=== PATIENT | male | born 1950 | race Caucasian/White ===

== ENCOUNTER 2018-08-14 12:24 | Outpatient (CLI) | payer MEDICARE, BC, SELFPAY ==
--- NOTE | 2018-08-14 12:26 | DI.RAD.S_ITS ---
PROCEDURE: PAIN L/S TRANSFORAMINAL INJECT INDICATIONS: Foraminal stenosis with right lower extremity radicular FINDINGS: Fluoroscopic spot filming was performed to verify placement of spinal needles at the L3-4 right-sided transforaminal border level(s), as labeled on the films. Appropriate location(s) of the needle tip(s) was confirmed by injection of iodinated contrast. IMPRESSION: Successful right right-sided L3-4 needle tip localization for transforaminal epidural steroid injection. Dictated by: Jaya Erickson M.D. on 08/14/2018 at 16:24 Approved by: Jaya Erickson M.D. on 08/14/2018 at 16:25
[2018-08-14 12:43] VITALS: BP 113/74; PULSE 82; RESP 18; TEMP 36.2; O2SAT 98
[2018-08-14 13:15] VITALS: BP 115/67; PULSE 80; RESP 16; O2SAT 98
[2018-08-14 13:19] VITALS: BP 111/74; PULSE 76; RESP 16; O2SAT 97
[2018-08-14 13:24] VITALS: BP 111/55; PULSE 77; RESP 18; O2SAT 97
[2018-08-14] MEDS: BUPIVACAINE 0.25% (PF) VIAL 2 ML INJ (13:25)
[2018-08-14] MEDS: DEXAMETHASONE 10 MG/ML VIAL 20 MG INJ (13:26)
[2018-08-14] MEDS: methylPREDNISolone acetate 80 MG/ML VIAL INJ (13:26)
[2018-08-14] MEDS: IOPAMIDOL 15 ML VIAL 3 ML INJ (13:26)
--- NOTE | 2018-08-14 13:29 | PC.NURSE ---
pt stable and did not receive sedation. Tolerated procedure and was able to get off table with minimal assistance. Transferred to pre procedure room in W/C and handed off to Darlene RIVAS.
[2018-08-14 13:33] VITALS: BP 138/73; PULSE 82; RESP 16; O2SAT 100
--- NOTE | 2018-08-14 13:35 | P.PCN_ITS ---
Procedures Date/Time Date of procedure: 08/14/18 Time of procedure: 13:34 General Procedure description: PROVIDER: Ayan Mtz DO Operative Note PREOP DIAGNOSIS 1. FORAMINAL STENOSIS WITH LE SYMPTOMS, POST OP DIAGNOSIS 1. FORAMINAL STENOSIS WITH LE SYMPTOMS, PROCEDURES 1. FLUOROSCOPICALLY GUIDED CONTRAST CONTROLLED TRANSFORAMINAL EPIDURAL STEROID INJECTION - RIGHT L3/4 TFESI SURGEON: Ayan Mtz DO INDICATION: Po is referred for treatment of Foraminal Stenosis with right LE Symptoms FINDINGS Foraminal Nerve Root Compression secondary to disc disease and facet hypertrophy DESCRIPTION OF PROCEDURE Following denial of allergy and review of potential side effects and complications, including, but not necessarily limited to, infection, allergic reaction, local tissue breakdown, stroke, temporary or permanent nerve injury, paralysis, and possible , the patient indicated that the patient understood and agreed to proceed. An informed consent document was signed by the patient, witnessed by a nurse, and placed in the patient's chart. Additionally, other treatment options including medications, modalities, and physical therapy were reviewed with the patient. After review of previous anaesthesic history and IV conscious sedation the patient was deemed safe to proceed with todays procedure with IV conscious sedation as ASA class II designation. Safety time-out was performed to confirm patient ID, procedure to be performed and site of procedure. IV sedation was deemed unnecessary and thus not administered by the RN after DO order, during the course of the procedure while the patient remained responsive to all verbal commands In the prone position following sterile prep and drape of the lumbar region, the right L3/4 posterior neuroforamen was identified fluoroscopically. The skin was anesthetized via a 25-gauge 1.5-inch needle with 1% lidocaine solution. At this point, a 25-gauge 3.5-inch spinal needle was atraumatically introduced and advanced under fluoroscopic guidance through the posterior right L3/4 neuroforamen to approximately the anterior aspect of the canal. Depth was confirmed on lateral view. Following negative aspiration, injection of approximately 1.5 cc of Isovue 200 under live fluoroscopy in the AP view confirmed excellent flow along the nerve root, into the epidural space without vascular or intrathecal uptake observed Radiological data, including multiple fluoroscopic views of the lumbosacral spine, reveal a spinal needle at the right L3/4 posterior neuroforamen. Subsequent views show flow of contrast material flowing superiorly and inferiorly along the nerve root confirming epidural flow. Subsequently, a test dose of 1.5 cc of 1% lidocaine solution was administered and patient was observed for two minutes for signs or symptoms of complications , including abdominal pain, shortness of breath, bilateral upper or lower extremity weakness, nausea and vomiting, prior to steroid injection. At this point, a total of 3 cc or 20 mg of dexamethasone and 80mg Depo medrol was injected without incident. The patient tolerated the procedure well without signs or symptoms of complications prior to transfer to the recovery area continued monitoring without incident. The patient was then transferred to the recovery area where they were observed for an appropriate time after the injection. The patient reported a VAS score of 7 prior to the procedure and a post-procedure VAS of 0. Total Fluoroscopy Time: 24.2 seconds Total Conscious Sedation Time: 24min POST OP INSTRUCTIONS The patient was provided a Pain Log to continue to record their response to the target-specific procedure prior to follow-up visit with their referring physician. Additionally, specific post-injection care instructions and a contact number to our office were provided if concerns arise regarding possible complications associated with the procedure are suspected. Ayan Mtz DO Complications: none
== END 2018-08-14 13:44 | disposition home or self-care (01) ==
LOC: RAD 12:26
PROVIDERS: Visit Provider Physical Medicine & Rehabilitation
DX: M48.061 Spinal stenosis, lumbar region without neurogenic claudication (principal); M51.16 Intervertebral disc disorders with radiculopathy, lumbar region; M96.1 Postlaminectomy syndrome, not elsewhere classified
CPT/HCPCS: 64483; J1040; J1100; J2250

== ENCOUNTER 2018-11-06 07:54 | Outpatient (CLI) | payer MEDICARE, BC, SELFPAY ==
[2018-11-06] VITALS (7 sets, daily range): BP systolic 106–126; BP diastolic 73–85; PULSE 71–76; RESP 16–21; TEMP 36.1; O2SAT 94–97
--- NOTE | 2018-11-06 07:58 | DI.RAD.S_ITS ---
PROCEDURE: PAIN L/SI FACET INJ/BLK 1STL INDICATIONS: SPONDYLOSIS FINDINGS: Fluoroscopic spot filming was performed to verify placement of spinal needles at the right L3-4, L4-5, L5-S1 level(s), as labeled on the films. Appropriate location(s) of the needle tip(s) was confirmed by injection of iodinated contrast. IMPRESSION: Successful right L3-4, L4-5, L5-S1 facet joint region localization for perineural epidural steroid injection. Dictated by: Jaya Erickson M.D. on 11/06/2018 at 10:16 Approved by: Jaya Erickson M.D. on 11/06/2018 at 10:17
[2018-11-06] MEDS: MIDAZOLAM 5 MG/5 ML VIAL IV (08:40)
[2018-11-06] MEDS: IOPAMIDOL 15 ML VIAL 3 ML INJ (08:52)
[2018-11-06] MEDS: BUPIVACAINE 0.5% (PF) VIAL 2 ML INJ (08:52)
[2018-11-06] MEDS: BETAMETHASONE 30 MG/5 ML MDV 12 MG INJ (08:53)
[2018-11-06] MEDS: LIDOCAINE 1% 20 ML INJ 10 ML INJ (08:53)
--- NOTE | 2018-11-06 09:02 | P.PCN_ITS ---
Procedures Date/Time Date of procedure: 11/06/18 Time of procedure: 08:59 General Procedure description: PREOP DIAGNOSIS 1. FACET ARTHROPATHY, 2. AXIAL LBP, 3. MULTILEVEL DDD, POST OP DIAGNOSIS 1. FACET ARTHROPATHY, 2. AXIAL LBP, 3. MULTILEVEL DDD, PROCEDURES 1. FLUORSCOPICALLY GUIDED CONTRAST CONTROLLED FACET JOINT INJECTIONS RIGHT L3/4 , L4/5, L5/S1 SURGEON: Ayan Mtz, DO INDICATIONS Po is referred for treatment of Axial LBP FINDINGS Multilevel Facet Arthropathy with Clinically significant axial LBP DESCRIPTION OF PROCEDURE Fluoroscopically guided, contrast-controlled right L3/4, L4/5, L5/S1 facet joint injections. Following denial of allergy and review of potential side effects and complications, including, but not necessarily limited to, infection, allergic reaction, local tissue breakdown, stroke, temporary or permanent nerve injury, paralysis, and possible , the patient indicated that the patient understood and agreed to proceed. An informed consent document was signed by the patient, witnessed by a nurse, and placed in the patient's chart. Additionally, other treatment options including medications, modalities, and physical therapy were reviewed with the patient. After review of previous anaesthesic history and IV conscious sedation the patient was deemed safe to proceed with todays procedure with IV conscious sedation as ASA class II designation. Safety time-out was performed to confirm patient ID, procedure to be performed and site of procedure. IV sedation was accomplished with a combination of 5mg was administered by the RN after DO order , titrated to patient comfort during the course of the procedure while the patient remained responsive to all verbal commands. In the prone position, following sterile prep and drape of the lumbar region, the posterior aspect of the right L3/4, L4/5, L5/S1 facet joints were identified fluoroscopically. The skin was anesthetized via a 25-gauge 1.5-inch needle with 1% lidocaine solution into the corresponding facet joints. At this point, a 22-gauge 3.5-inch spinal needle was atraumatically introduced and advanced under fluoroscopic guidance into the corresponding facet joints. Following negative aspiration, injections of approximately 0.2-cc of Isovue 200 confirmed interarticular placement without vascular uptake. Radiological data, including multiple fluoroscopic views of the lumbosacral spine, reveal a spinal needle at the right L3/4, L4/5, L5/S1 facet joints. Subsequent views show flow of contrast material both superiorly and inferiorly within the joint space without vascular or intrathecal uptake. At this point, a total of 0.5 cc including a mixture of 0.25cc Marcaine and 0.25cc betamethasone was injected without complication into each of the corresponding facet joints. The procedure tolerated the procedure well without signs or symptoms of complications prior to transfer to the recovery area continued monitoring without incident. The patient was then transferred to the recovery area where they were observed for an appropriate period of time after the injection. The patient reported a VAS score of 7 prior to the procedure and a post-procedure VAS of 0. Total Fluoroscopy Time: 12.7 seconds Total Conscious Sedation Time: 24min POST OP INSTRUCTIONS The patient was provided a Pain Log to continue to record their response to the target-specific procedure prior to follow-up visit with their referring physician. Additionally, specific post-injection care instructions and a contact number to our office were provided if concerns arise regarding possible complications associated with the procedure are suspected. Ayan Mtz, Complications: none
--- NOTE | 2018-11-06 09:03 | PC.NURSE ---
pt tolerated procedure, assisted off the table and into a wheelchair. pt drowsy but responsive, Transferred pt to pre procedure room for continued monitoring by Darlene RIVAS
--- NOTE | 2018-11-06 09:04 | PC.NURSE ---
accepted care of pt in post proc area. pt in stable condition
--- NOTE | 2018-11-07 12:49 | PC.NURSE ---
Called for follow up call from yesterdays injection. Pt not accepting phone calls per his message machine.
== END 2018-11-06 09:52 | disposition home or self-care (01) ==
LOC: RAD 07:56
PROVIDERS: Visit Provider Physical Medicine & Rehabilitation
DX: M47.817 Spondylosis without myelopathy or radiculopathy, lumbosacral region (principal); M47.816 Spondylosis without myelopathy or radiculopathy, lumbar region; M54.5 Low back pain; M51.36 Other intervertebral disc degeneration, lumbar region; M51.37 Other intervertebral disc degeneration, lumbosacral region
CPT/HCPCS: 64493; 64494; 64495; 99152; J0702; J2250

== ENCOUNTER → 2020-12-04 13:49 | Outpatient (CLI) | payer MEDICARE, BC, SELFPAY ==
--- NOTE | 2020-12-04 13:50 | DI.RAD.S_ITS ---
PROCEDURE: XR LUMBAR SPINE MIN 4V INDICATIONS: BACK PAIN TECHNIQUE: 5 views of the lumbar spine were acquired, including bilateral oblique views. COMPARISON: [facility], MR, L-SPINE WITHOUT CONTRAST, 08/17/2017, 15:09. [facility], CR, XR LUMBAR SPINE WITH OBLIQUES, 08/09/2017, 8:38. FINDINGS: Bones: 5 nonrib-bearing vertebrae are present. There is grade 1 retrolisthesis of L2 on L3, L3 on L4, L4 on L5 and L5 on S1. Non bridging anterior osteophytes are present from L2 through L5. Severe foraminal narrowing is noted at L5-S1, moderate to severe L3-4 L4-5 and mild to moderate L1-L2 and L2-3. Overall appearance is minimally progressive compared to 2017. No vertebral body compression fractures. No suspicious bony lesions. Soft tissues: Overlying bowel gas pattern is normal. No suspicious soft tissue calcifications. Oblique images: No pars defects. IMPRESSION: Multilevel degenerative changes most severe at L4-5 and L5-S1, slightly progressive compared to prior exam. Dictated by: Edda Penny M.D. on 12/04/2020 at 16:17 Approved by: Edda Penny M.D. on 12/04/2020 at 16:18
== END ==
PROVIDERS: Referring Provider Physical Medicine & Rehabilitation; Visit Provider Physical Medicine & Rehabilitation
DX: M47.817 Spondylosis without myelopathy or radiculopathy, lumbosacral region (principal); M47.816 Spondylosis without myelopathy or radiculopathy, lumbar region; M96.1 Postlaminectomy syndrome, not elsewhere classified
CPT/HCPCS: 72110

== ENCOUNTER → 2021-01-01 11:03 | Outpatient (CLI) | payer MEDICARE, BC, SELFPAY ==
--- NOTE | 2021-01-01 11:09 | DI.RAD.S_ITS ---
PROCEDURE: XR LUMBAR SPINE MIN 4V INDICATIONS: LBP s/p fall TECHNIQUE: 5 views of the lumbar spine were acquired, including bilateral oblique views. COMPARISON: [facility], CR, XR LUMBAR SPINE MIN 4V, 12/04/2020, 13:53. FINDINGS: Bones: 5 nonrib-bearing vertebrae are present. There is mild rightward scoliosis of lumbar spine centered at L3 level. Degenerative endplate changes and bilateral facet arthrosis throughout lumbar spine is seen more prominent at L3-4 and L4-5 levels.. No vertebral body compression fractures. No suspicious bony lesions. Soft tissues: Overlying bowel gas pattern is normal. No suspicious soft tissue calcifications. Oblique images: No pars defects. There is suggestion of bilateral bony foraminal stenosis at L3-4 and L4-5 levels. IMPRESSION: 1. No acute compression fracture in lumbar spine. Very mild rightward scoliosis. Grade 1 retrolisthesis of L2 on L3. 2. Degenerative disc disease throughout lumbar spine. No gross pars defect. Bilateral bony foraminal stenosis at L3-4 and L4-5 levels. Dictated by: Fabrizio Alvarez M.D. on 01/01/2021 at 12:27 Approved by: Fabrizio Alvarez M.D. on 01/01/2021 at 12:28
== END ==
PROVIDERS: Referring Provider Physical Medicine & Rehabilitation; Visit Provider Physical Medicine & Rehabilitation
DX: M51.16 Intervertebral disc disorders with radiculopathy, lumbar region (principal); M48.061 Spinal stenosis, lumbar region without neurogenic claudication; M43.16 Spondylolisthesis, lumbar region; M96.1 Postlaminectomy syndrome, not elsewhere classified
CPT/HCPCS: 72110

== ENCOUNTER → 2021-01-24 12:26 | Outpatient (CLI) | payer MEDICARE, BC, SELFPAY ==
--- NOTE | 2021-01-24 12:28 | DI.MRI.S_ITS ---
PROCEDURE: MR LUMBAR SPINE WO CON INDICATIONS: Post laminectomy syndrome TECHNIQUE: Noncontrast sagittal T1 spin echo and T2 fast echo, sagittal STIR, axial T1 and T2 fast spin echo through the lumbar spine. In cases with scoliosis, additional coronal T2 fast spin echo may be performed. COMPARISON: [facility], CR, XR LUMBAR SPINE MIN 4V, 01/01/2021, 11:16. [facility], MR, L-SPINE WITHOUT CONTRAST, 08/17/2017, 15:09. FINDINGS: Image quality: Excellent. Alignment and Curvature: There is normal bony alignment. Remote L3-L4 laminectomy. Bone Marrow: Marrow is of normal overall signal. No acute vertebral body compression fractures. Spinal Cord: Conus medullaris terminates at the L1-L2 level. Visualized cord demonstrates normal signal and size. Paraspinous Soft Tissues: No paravertebral masses. T12-L1: No canal stenosis or foraminal stenosis. L1-L2: No central canal stenosis. Mild bilateral foraminal stenosis. Unchanged. L2-L3: Unchanged. Minimal disc bulge. Facet hypertrophy. No canal stenosis. Mild bilateral foraminal stenosis. L3-L4: Posterior annulus tear plus disc bulge. Posterior laminectomy. No canal stenosis. Moderate bilateral foraminal stenosis, as before, with mild flattening deformity on the exiting L3 nerve roots. L4-L5: Disc bulge. Facet hypertrophy. No central canal stenosis. Moderate to severe right foraminal narrowing with impingement on the exiting right L4 nerve root. Moderate left foraminal narrowing with flattening deformity on the exiting left L4 nerve root. L5-S1: Stable small right paracentral disc protrusion. Prominent bilateral facet and ligament hypertrophy. Mild canal stenosis. Severe right lateral recess stenosis, with impingement on the right S1 nerve root in the right lateral recess. Moderate bilateral foraminal narrowing with flattening deformity on the exiting bilateral L5 nerve roots. IMPRESSION: 1. Remote L3-L4 laminectomy. 2. Multilevel facet arthropathy. 3. Stable findings at L5-S1. There is mild central canal stenosis, severe right lateral recess stenosis, and moderate bilateral foraminal narrowing. 4. Multilevel foraminal narrowing, with at least moderate foraminal narrowing bilaterally at L3-L4 through L5-S1, and moderate to severe right foraminal narrowing at L4-L5. Dictated by: Mo Shelton M.D. on 01/25/2021 at 9:16 Approved by: Mo Shelton M.D. on 01/25/2021 at 9:27
== END ==
PROVIDERS: Referring Provider Physical Medicine & Rehabilitation; Visit Provider Physical Medicine & Rehabilitation
DX: M47.816 Spondylosis without myelopathy or radiculopathy, lumbar region (principal); M96.1 Postlaminectomy syndrome, not elsewhere classified
CPT/HCPCS: 72148

== ENCOUNTER → 2021-02-09 14:38 | Outpatient (CLI) | payer MEDICARE, BC, SELFPAY ==
[2021-02-09 15:34] LABS: COVID19 -Nasal RAPID Negative (Negative)
== END ==
PROVIDERS: Visit Provider Physical Medicine & Rehabilitation
DX: Z20.822 Contact with and (suspected) exposure to COVID-19 (principal)
CPT/HCPCS: 87635; C9803

== ENCOUNTER 2021-02-11 08:16 | Outpatient (CLI) | payer MEDICARE, BC, SELFPAY ==
[2021-02-11] VITALS (9 sets, daily range): BP systolic 89–133; BP diastolic 54–75; PULSE 70–79; RESP 15–23; TEMP 36.1–36.4; O2SAT 97–99
--- NOTE | 2021-02-11 08:17 | DI.RAD.S_ITS ---
PROCEDURE: PAIN L/SI FACET INJ/BLK 1STL INDICATIONS: SPONDYLOSIS COMPARISON: [facility], , PAIN L/SI FACET INJ/BLK 1STL, 11/06/2018, 8:47. FINDINGS: Fluoroscopic spot filming was performed to verify placement of spinal needles at the L3 through S1 levels. Appropriate location(s) of the needle tip(s) was confirmed by injection of iodinated contrast. IMPRESSION: Intraprocedural examination within normal limits. Dictated by: Srinivas Bailey M.D. on 02/11/2021 at 9:25 Approved by: Srinivas Bailey M.D. on 02/11/2021 at 9:26
[2021-02-11] MEDS: fentaNYL 100 MCG/2 ML INJ 50 MCG IV (09:25)
[2021-02-11] MEDS: MIDAZOLAM 5 MG/5 ML VIAL IV (09:29)
[2021-02-11] MEDS: LIDOCAINE 1% 20 ML 10 ML INJ (09:29)
[2021-02-11] MEDS: IOPAMIDOL 15 ML VIAL 3 ML INJ (09:29)
[2021-02-11] MEDS: BUPIVACAINE 0.5% (PF) VIAL 5 ML INJ (09:29)
--- NOTE | 2021-02-11 09:39 | PM.PROC.IR.1 ---
Date/Time/Diagnoses Date of procedure: 02/11/21 Time of procedure: 09:40 Pre-procedure diagnosis: 1. FACET ARTHROPATHY Post-procedure diagnosis: same Procedure Notes Procedure: 1. Left L3, L4, L5 and S1 MB BLOCKS Indications: Po is referred for treatment of Left Axial LBP. Physician: Ayan Mtz Total Fluoroscopy time (seconds): 6 Total sedation minutes: 11 Complications: none Procedure in detail & Post-procedure care: DESCRIPTION OF PROCEDURE Fluoroscopically guided, contrast-controlled left L3, L4, L5 and S1 medial branch blocks with 0.5cc of 0.5% Marcaine. Following review of allergy and review of potential side effects and complications, including, but not necessarily limited to, infection, allergic reaction, local tissue breakdown, nerve injury, paralysis, stroke and possible , the patient indicated that the patient understood and agreed to proceed. An informed consent document was signed by the patient, witnessed by a nurse, and placed in the patient's chart. After review of previous anaesthesic history and IV conscious sedation the patient was deemed safe to proceed with today?s procedure with IV conscious sedation as ASA class II designation. Safety time-out was performed to confirm patient ID, procedure to be performed and site of procedure. IV sedation was accomplished with a combination of 3mg of Versed and 50mcg of Fentanyl was administered by the RN after DO order, titrated to patient comfort during the course of the procedure while the patient remained responsive to all verbal commands. In the prone position, following sterile prep and drape of the lumbar region, the left L3, L4, L5 and S1 anatomical location of the medial branch of the dorsal ramus was identified fluoroscopically. Subsequently an anesthetic skin wheal using 1% lidocaine solution was initiated at each of the anatomical spots. Subsequently then a 22-gauge 3.5-inch spinal needle was atraumatically introduced and advanced under fluoroscopic guidance at each of the corresponding sites at the left L3, L4, L5 and S1 MB. After negative aspiration, 0.2cc of Isovue 200 was injected, confirming placement without vascular or intrathecal uptake. Subsequently then 0.5cc of 0.5% Marcaine solution was injected at each of the corresponding sites at the left L3, L4, L5 and S1 medial branch locations. The patient tolerated the procedure well without signs or symptoms of complications. The patient tolerated the procedure well without signs or symptoms of complications prior to transfer to the recovery area continued monitoring without incident. Post-procedure, the patient was monitored initiating provocative activities to measure the amount of relief from block of the facetogenic pain. The patient reported a VAS of 7 prior to the procedure and a post-procedure VAS of 1. It has been a pleasure to assist in the diagnostic and therapeutic care of your patient. POST OP INSTRUCTIONS The patient was provided with a Pain Log to complete over the next several hours and subsequent days prior to the patient's follow up with the ordering physician. If the patient has research director relief to the solution applied, then they may be a candidate for medial branch rhizotomy. The patient is aware, was provided, once again, with a Pain Log and will follow up with the referring physician for review and clinical correlation.
== END 2021-02-11 10:01 | disposition home or self-care (01) ==
LOC: RAD 08:17
PROVIDERS: Referring Provider Physical Medicine & Rehabilitation; Visit Provider Physical Medicine & Rehabilitation
DX: M47.816 Spondylosis without myelopathy or radiculopathy, lumbar region (principal); M47.817 Spondylosis without myelopathy or radiculopathy, lumbosacral region; M54.5 Low back pain
CPT/HCPCS: 64493; 64494; 64495; 99152; J2250; J3010

== ENCOUNTER → 2021-08-30 11:03 | Outpatient (CLI) | payer MEDICARE, BC, SELFPAY ==
[2021-08-30 13:56] LABS: COVID19 -Nasal RAPID Negative (Negative)
== END ==
PROVIDERS: Visit Provider Physical Medicine & Rehabilitation
DX: Z20.822 Contact with and (suspected) exposure to COVID-19 (principal)
CPT/HCPCS: 87635; C9803

== ENCOUNTER 2021-08-31 09:43 | Outpatient (CLI) | payer MEDICARE, OTHER, SELFPAY ==
[2021-08-31] VITALS (8 sets, daily range): BP systolic 108–144; BP diastolic 64–82; PULSE 64–82; RESP 12–24; TEMP 36.4; O2SAT 93–100
--- NOTE | 2021-08-31 09:44 | DI.RAD.S_ITS ---
PROCEDURE: PAIN L/S MED/LAT N RFA INDICATIONS: SPONDYLOSIS COMPARISON: [facility], , PAIN L/SI FACET INJ/BLK 1STL, 02/11/2021, 9:30. FINDINGS: Fluoroscopic spot filming was performed to verify placement of spinal needles on the right at the L3, L4, L5, and S1 level(s), as labeled on the films. IMPRESSION: Intraprocedural examination within normal limits. Dictated by: Srinivas Bailey M.D. on 08/31/2021 at 11:41 Approved by: Srinivas Bailey M.D. on 08/31/2021 at 11:41
[2021-08-31] MEDS: fentaNYL 100 MCG/2 ML INJ 50 MCG IV (11:44)
[2021-08-31] MEDS: MIDAZOLAM 5 MG/5 ML VIAL IV (11:44)
[2021-08-31] MEDS: LIDOCAINE 1% 20 ML INJ (11:47)
[2021-08-31] MEDS: BUPIVACAINE 0.5% (PF) VIAL 5 ML INJ (11:48)
--- NOTE | 2021-08-31 12:16 | P.PCN_ITS ---
Date/Time/Diagnoses Date of procedure: 08/31/21 Time of procedure: 12:16 Pre-procedure diagnosis: 1. RECALCITRANT FACET ARTHROPATHY Post-procedure diagnosis: same Procedure Notes Procedure: 1. LEFT L3, L4 AND L5 MEDIAL BRANCH RADIOFREQUENCY NEUROTOMY AND LEFT S1 DORSAL RAMUS RADIOFREQUENCY NEUROTOMY, Indications: Po is referred for treatment of facet arthropathy. Physician: Ayan Mtz Total Fluoroscopy time (seconds): 10 Total sedation minutes: 24 Complications: none Procedure in detail & Post-procedure care: DESCRIPTION OF PROCEDURE Left L3, L4 and L5 medial branch radiofrequency neurotomy and left S1 dorsal ramus branch radiofrequency neurotomy under fluoroscopy with conscious sedation. The patient is well known to this clinic having undergone previous facet injections with good but temporary relief. The patient has experienced appropriate, concordant relief with previous facet and median branch blocks but the patient's pain has been recalcitrant to further conservative measures. Therefore, based upon the patient's relief and persistent symptoms, the patient is considered an appropriate candidate for facet rhizotomy. All of the patient's questions regarding the risks versus benefits of the procedure, including, but not limited to, bleeding, infection, temporary as well as lasting nerve injury, paralysis, stroke, and , as well treatment alternatives were answered to satisfaction. After obtaining informed consent, denial of pertinent drug allergies, as well as being made aware of the potential risks of bleeding, infection, spinal cord trauma, paralysis, temporary and permanent nerve damage, seizure, stroke, and possible , the patient was brought to the fluoroscopy suite and positioned prone on the fluoroscopy table. The lumbar region was prepped with Betadine and covered with a fenestrated drape in the usual sterile fashion. Appropriate monitors applied including pulse oximeter, pulse, and blood pressure for regular monitoring throughout the procedure. IV sedation was accomplished with a combination of 3mg of Versed and 50mcg of Fentanyl titrated to patient comfort during the course of the procedure while the patient remained responsive to all verbal commands. After local infiltration using 1% lidocaine, under fluoroscopic guidance, a 10- cm RF insulated needle with a 10-mm active tip was positioned parallel to the junction of the left sacral ala and the superior articulating process where the S1 dorsal ramus resides. Needle placement was confirmed with sensory stimulation at 50 Hz, with motor stimulation of .5v on the left which produced local stimulation without radicular component. The stimulation was then increased to 2v with, once again, only local multifidus stimulation without radicular component. This was then followed by two discreet lesions performed at 80 degrees Celsius for 90 seconds each. The needle was then removed and the identical procedure was performed along the length of the left L5 medial branch with motor stimulation at .7v on the left. The identical procedure was once again performed along the length of the left L4 medial branch with motor stimulation of .5v on the left. The identical procedure was once again performed along the length of the left L3 medial branch with motor stimulation of .5v on the left. The patient tolerated the procedure well without signs or symptoms of complications prior to transfer to the recovery area continued monitoring without incident. The patient was then transferred to the recovery area where they were observed for an appropriate period of time after the injection. The patient was then transferred to the recovery area where they were observed for an appropriate period of time after the injection. The patient reported a VAS score of 7 prior to the procedure and a post- procedure VAS of 0. POST OP INSTRUCTIONS The patient was provided a Pain Log to continue to record the patient's response to the target-specific procedure prior to the patient's follow-up visit with the referring physician. Additionally, specific post-injection care instructions and a contact number to our office were provided if concerns arise regarding possible complications associated with the procedure are suspected.
== END 2021-08-31 12:38 | disposition home or self-care (01) ==
LOC: RAD 09:44
PROVIDERS: Referring Provider Physical Medicine & Rehabilitation; Visit Provider Physical Medicine & Rehabilitation
DX: M47.816 Spondylosis without myelopathy or radiculopathy, lumbar region (principal); M47.817 Spondylosis without myelopathy or radiculopathy, lumbosacral region
CPT/HCPCS: 64635; 64636; 99152; J2250; J3010

== ENCOUNTER → 2021-12-13 09:31 | Outpatient (CLI) | payer MEDICARE, OTHER, SELFPAY ==
[2021-12-13 10:27] LABS: COVID19 -Nasal RAPID Negative (Negative)
== END ==
PROVIDERS: Visit Provider Physical Medicine & Rehabilitation
DX: Z01.812 Encounter for preprocedural laboratory examination (principal); Z20.822 Contact with and (suspected) exposure to COVID-19; M47.27 Other spondylosis with radiculopathy, lumbosacral region; M47.816 Spondylosis without myelopathy or radiculopathy, lumbar region; M96.1 Postlaminectomy syndrome, not elsewhere classified; M16.0 Bilateral primary osteoarthritis of hip
CPT/HCPCS: 87635; 99214

== ENCOUNTER 2021-12-14 07:32 | Outpatient (CLI) | payer MEDICARE, OTHER, SELFPAY ==
[2021-12-14] VITALS (9 sets, daily range): BP systolic 111–143; BP diastolic 57–78; PULSE 67–76; RESP 13–20; TEMP 36.6; O2SAT 96–100
--- NOTE | 2021-12-14 07:33 | DI.RAD.S_ITS ---
PROCEDURE: PAIN L/S TRANSFORAMINAL INJECT INDICATIONS: SPONDYLOSIS COMPARISON: [facility], MANNY, PAIN L/S TRANSFORAMINAL INJECT, 08/14/2018, 13:22. [facility], XA, PAIN L/S MED/LAT N RFA, 08/31/2021, 12:49. FINDINGS: Fluoroscopic spot filming was performed to verify placement of a spinal needle at the L5-S1 level, as labeled on the films. Appropriate location of the needle tip was confirmed by injection of iodinated contrast. IMPRESSION: No significant intraprocedural abnormality. Dictated by: Srinivas Bailey M.D. on 12/14/2021 at 7:46 Approved by: Srinivas Bailey M.D. on 12/14/2021 at 7:46
[2021-12-14] MEDS: fentaNYL 250 MCG/5 ML INJ (08:15)
[2021-12-14] MEDS: BETAMETHASONE 30 MG/5 ML MDV (08:17)
[2021-12-14] MEDS: IOPAMIDOL 15 ML VIAL INJ (08:17)
[2021-12-14] MEDS: DEXAMETHASONE 10 MG/ML VIAL 20 MG (08:19)
[2021-12-14] MEDS: LIDOCAINE 2% INJ MDV 20 ML (08:19)
[2021-12-14] MEDS: MIDAZOLAM 5 MG/5 ML VIAL IV (08:26)
--- NOTE | 2021-12-14 08:33 | P.PCN_ITS ---
Date/Time/Diagnoses Date of procedure: 12/14/21 Time of procedure: 08:33 Pre-procedure diagnosis: FORAMINAL STENOSIS WITH LE SYMPTOMS Post-procedure diagnosis: same Procedure Notes Procedure: 1. FLUOROSCOPICALLY GUIDED CONTRAST CONTROLLED TRANSFORAMINAL EPIDURAL STEROID INJECTION - RIGHT L5/S1 TFESI Indications: Po is referred for treatment of Foraminal Stenosis with Right LE Symptoms Physician: Ayan Mtz Total Fluoroscopy time (seconds): 14 Total sedation minutes: 14 Complications: none Procedure in detail & Post-procedure care: FINDINGS Foraminal Nerve Root Compression secondary to disc disease and facet hypertrophy DESCRIPTION OF PROCEDURE Following review of allergy and review of potential side effects and complications, including, but not necessarily limited to, infection, allergic reaction, local tissue breakdown, stroke, temporary or permanent nerve injury, paralysis, and possible , the patient indicated that the patient understood and agreed to proceed. An informed consent document was signed by the patient, witnessed by a nurse, and placed in the patient's chart. Additionally, other treatment options including medications, modalities, and physical therapy were reviewed with the patient. After review of previous anaesthesic history and IV conscious sedation the patient was deemed safe to proceed with today?s procedure with IV conscious sedation as ASA class II designation. Safety time-out was performed to confirm patient ID, procedure to be performed and site of procedure. IV sedation was accomplished with a combination of 3mg of Versed and 50mcg of Fentanyl was administered by the RN after DO order, titrated to patient comfort during the course of the procedure while the patient remained responsive to all verbal commands In the prone position following sterile prep and drape of the lumbar region, the right L5/S1 posterior neuroforamen was identified fluoroscopically. The skin was anesthetized via a 25-gauge 1.5-inch needle with 1% lidocaine solution. At this point, a 25-gauge 3.5-inch spinal needle was atraumatically introduced and advanced under fluoroscopic guidance through the posterior right L5/S1 neuroforamen to approximately the anterior aspect of the canal. Depth was confirmed on lateral view. Following negative aspiration, injection of approximately 1.5cc of Isovue 200 under live fluoroscopy in the AP view confirmed excellent flow along the nerve root, into the epidural space without vascular or intrathecal uptake observed Radiological data, including multiple fluoroscopic views of the lumbosacral spine, reveal a spinal needle at the right L5/S1 posterior neuroforamen. Subsequent views show flow of contrast material flowing superiorly and inferiorly along the nerve root confirming epidural flow. Subsequently, a test dose of 1.5 cc of 1% lidocaine solution was administered and patient was observed for two minutes for signs or symptoms of complications, including abdominal pain, shortness of breath, bilateral upper or lower extremity weakness, nausea and vomiting, prior to steroid injection. At this point, a total of 3cc or 20mg of dexamethasone and 6mg of betamethasone was injected without incident. The procedure tolerated the procedure well without signs or symptoms of complications prior to transfer to the recovery area continued monitoring without incident. The patient was then transferred to the recovery area where they were observed for an appropriate time after the injection. The patient reported a VAS score of 7 prior to the procedure and a post- procedure VAS of 0. POST OP INSTRUCTIONS The patient was provided a Pain Log to continue to record their response to the target-specific procedure prior to follow-up visit with their referring physician. Additionally, specific post-injection care instructions and a contact number to our office were provided if concerns arise regarding possible complications associated with the procedure are suspected.
== END 2021-12-14 09:02 | disposition home or self-care (01) ==
PROVIDERS: Referring Provider Physical Medicine & Rehabilitation; Visit Provider Physical Medicine & Rehabilitation
DX: M48.07 Spinal stenosis, lumbosacral region (principal); M51.17 Intervertebral disc disorders with radiculopathy, lumbosacral region
CPT/HCPCS: 64483; 99152; J0702; J1100; J2250; J3010

== ENCOUNTER → 2022-01-17 16:10 | Outpatient (CLI) | payer MEDICARE, OTHER, SELFPAY ==
[2022-01-17 17:13] LABS: COVID19 -Nasal RAPID Negative (Negative)
== END ==
PROVIDERS: Visit Provider Physical Medicine & Rehabilitation
DX: M54.17 Radiculopathy, lumbosacral region (principal); M47.816 Spondylosis without myelopathy or radiculopathy, lumbar region; M96.1 Postlaminectomy syndrome, not elsewhere classified; Z20.822 Contact with and (suspected) exposure to COVID-19
CPT/HCPCS: 87635; 99214

== ENCOUNTER 2022-01-20 07:47 | Outpatient (CLI) | payer MEDICARE, OTHER, SELFPAY ==
[2022-01-20] VITALS (8 sets, daily range): BP systolic 117–162; BP diastolic 70–83; PULSE 66–78; RESP 16–20; TEMP 36.3; O2SAT 98–100
--- NOTE | 2022-01-20 07:50 | DI.RAD.S_ITS ---
PROCEDURE: PAIN L INTERLAMINAR/CAUDAL INJ INDICATIONS: SPONDYLOSIS COMPARISON: [facility], XA, PAIN L/S TRANSFORAMINAL INJECT, 12/14/2021, 9:17. [facility], XA, PAIN L/S MED/LAT N RFA, 08/31/2021, 12:49. [facility], XA, PAIN L/SI FACET INJ/BLK 1STL, 02/11/2021, 9:30. FINDINGS: Fluoroscopic spot filming was performed to verify placement of a spinal needle at the L5-S1 level, as labeled on the films. Appropriate location of the needle tip was confirmed by injection of iodinated contrast. IMPRESSION: No significant intraprocedural abnormality. Dictated by: Srinivas Bailey M.D. on 01/20/2022 at 8:34 Approved by: Srinivas Bailey M.D. on 01/20/2022 at 8:34
[2022-01-20] MEDS: MIDAZOLAM 2 MG/2 ML VIAL IV (08:24)
[2022-01-20] MEDS: BUPIVACAINE 0.25% (PF) VIAL 2 ML INJ (08:24)
[2022-01-20] MEDS: IOPAMIDOL 15 ML VIAL 3 ML INJ (08:24)
[2022-01-20] MEDS: DEXAMETHASONE 10 MG/ML VIAL 20 MG INJ (08:25)
[2022-01-20] MEDS: BETAMETHASONE 30 MG/5 ML MDV 6 MG INJ (08:25)
--- NOTE | 2022-01-20 08:31 | PM.PROC.IR.1 ---
Date/Time/Diagnoses Date of procedure: 01/20/22 Time of procedure: 08:31 Pre-procedure diagnosis: 1. HNP WITH RADICULAR FEATURES, 2. MULTILEVEL CENTRAL STENOSIS, Post-procedure diagnosis: same Procedure Notes Procedure: 1. FLUOROSCOPICALLY GUIDED CONTRAST CONTROLLED INTERLAMINAR EPIDURAL STEROID INJECTION - L5/S1 Indications: Po is referred for treatment of HNP with Right LE symptoms. Physician: Ayan Mtz Total Fluoroscopy time (seconds): 4 Total sedation minutes: 11 Complications: none Procedure in detail & Post-procedure care: FINDINGS Multilevel Central Spinal Stenosis with Nerve Root Compression DESCRIPTION OF PROCEDURE Fluoroscopically guided, contrast-controlled L5/S1 translaminar epidural steroid injection. Following review of allergy and review of potential side effects and complications, including, but not necessarily limited to, infection, allergic reaction, local tissue breakdown, temporary as well as permanent nerve injury, paralysis, stroke and possible , the patient indicated that the patient understood and agreed to proceed. An informed consent document was signed by the patient, witnessed by a nurse, and placed in the patient's chart. Additionally, other treatment options including modalities, medications, and physical therapy were reviewed with the patient. After review of previous anaesthesic history and IV conscious sedation the patient was deemed safe to proceed with today?s procedure with IV conscious sedation as ASA class II designation. Safety time-out was performed to confirm patient ID, procedure to be performed and site of procedure. IV sedation was accomplished with a combination of 2mg of Versed administered by the RN after DO order, titrated to patient comfort during the course of the procedure while the patient remained responsive to all verbal commands. In the prone position, following sterile prep and drape of the lumbar region, the L5/S1 translaminar space was identified fluoroscopically. The skin was anesthetized via a 25-gauge, 1.5-inch needle with 1% lidocaine solution. At this point, a 22-gauge short bevel spinal needle was atraumatically introduced and advanced under fluoroscopic guidance into the region of the L5/S1 translaminar space. Depth was confirmed on lateral view. Radiological data, including multiple fluoroscopic views of the lumbar spine, reveal a spinal needle at the L5/S1 translaminar space. Lateral views then show placement of the needle in the epidural space. Subsequent views show contrast material flowing superiorly and inferiorly in the epidural space. No vascular or intrathecal uptake is observed. At this point, using loss of resistance technique with saline and air, the epidural space was entered. This was confirmed following negative aspiration with injection of approximately 1.5cc of Isovue 200, showing excellent epidural flow without vascular or intrathecal uptake. At this point, 1 cc of 1% lidocaine solution combined with 3cc or 20mg of dexamethasone and 6mg of betamethasone was injected without incident. The patent tolerated the procedure without signs of symptoms of complications prior to transfer to the recovery area for further monitoring. The patient was then transferred to the recovery area where they were observed for an appropriate period of time after the injection. The patient reported a VAS score of 6 prior to the procedure and a post-procedure VAS of 0. POST OP INSTRUCTIONS The patient was provided a Pain Log to continue to record their response to the target-specific procedure prior to follow-up visit with their referring physician. Additionally, specific post-injection care instructions and a contact number to our office were provided if concerns arise regarding possible complications associated with the procedure are suspected.
== END 2022-01-20 08:48 | disposition home or self-care (01) ==
LOC: RAD 07:48
PROVIDERS: Referring Provider Physical Medicine & Rehabilitation; Visit Provider Physical Medicine & Rehabilitation
DX: M51.17 Intervertebral disc disorders with radiculopathy, lumbosacral region (principal); M48.07 Spinal stenosis, lumbosacral region
CPT/HCPCS: 62323; 99152; J0702; J1100; J2250; J3010

== ENCOUNTER → 2022-03-14 11:19 | Outpatient (CLI) | payer MEDICARE, OTHER, SELFPAY ==
[2022-03-14 13:02] LABS: COVID19 -Nasal RAPID Negative (Negative)
== END ==
PROVIDERS: Visit Provider Physical Medicine & Rehabilitation
DX: Z20.822 Contact with and (suspected) exposure to COVID-19 (principal)
CPT/HCPCS: 87635; C9803

== ENCOUNTER 2022-03-15 08:33 | Outpatient (CLI) | payer MEDICARE, OTHER, SELFPAY ==
[2022-03-15] VITALS (8 sets, daily range): BP systolic 104–147; BP diastolic 58–78; PULSE 60–70; RESP 15–23; TEMP 36.3; O2SAT 97–99
--- NOTE | 2022-03-15 08:35 | DI.RAD.S_ITS ---
PROCEDURE: PAIN L INTERLAMINAR/CAUDAL INJ INDICATIONS: SPONDYLOSIS COMPARISON: [facility], XA, PAIN L INTERLAMINAR/CAUDAL INJ, 01/20/2022, 8:22. FINDINGS: Fluoroscopic spot filming was performed to verify placement of a spinal needle at the L5-S1 level, as labeled on the films. Appropriate location of the needle tip was confirmed by injection of iodinated contrast. IMPRESSION: No significant intraprocedural abnormality. Dictated by: Srinivas Bailey M.D. on 03/15/2022 at 9:08 Approved by: Srinivas Bailey M.D. on 03/15/2022 at 9:08
[2022-03-15] MEDS: MIDAZOLAM 2 MG/2 ML VIAL IV (09:22)
[2022-03-15] MEDS: IOPAMIDOL 15 ML VIAL 3 ML INJ (09:27)
[2022-03-15] MEDS: BUPIVACAINE 0.25% (PF) VIAL 2 ML INJ (09:27)
[2022-03-15] MEDS: DEXAMETHASONE 10 MG/ML VIAL 20 MG INJ (09:27)
[2022-03-15] MEDS: BETAMETHASONE 30 MG/5 ML MDV 6 MG INJ (09:28)
--- NOTE | 2022-03-15 09:41 | PM.PROC.IR.1 ---
Date/Time/Diagnoses Date of procedure: 03/15/22 Time of procedure: 09:41 Pre-procedure diagnosis: 1. HNP WITH RADICULAR FEATURES, 2. MULTILEVEL CENTRAL STENOSIS, Post-procedure diagnosis: same Procedure Notes Procedure: 1. FLUOROSCOPICALLY GUIDED CONTRAST CONTROLLED INTERLAMINAR EPIDURAL STEROID INJECTION - L5/S1 Indications: Po is referred for treatment of Bilateral Foraminal Stenosis L>R LE symptoms. Physician: Ayan Mtz Total Fluoroscopy time (seconds): 4 Total sedation minutes: 12 Complications: none Procedure in detail & Post-procedure care: FINDINGS Multilevel Central Spinal Stenosis with Nerve Root Compression DESCRIPTION OF PROCEDURE Fluoroscopically guided, contrast-controlled L5/S1 translaminar epidural steroid injection. Following review of allergy and review of potential side effects and complications, including, but not necessarily limited to, infection, allergic reaction, local tissue breakdown, temporary as well as permanent nerve injury, paralysis, stroke and possible , the patient indicated that the patient understood and agreed to proceed. An informed consent document was signed by the patient, witnessed by a nurse, and placed in the patient's chart. Additionally, other treatment options including modalities, medications, and physical therapy were reviewed with the patient. After review of previous anaesthesic history and IV conscious sedation the patient was deemed safe to proceed with today?s procedure with IV conscious sedation as ASA class II designation. Safety time-out was performed to confirm patient ID, procedure to be performed and site of procedure. IV sedation was accomplished with a combination of 2mg of Versed administered by the RN after DO order, titrated to patient comfort during the course of the procedure while the patient remained responsive to all verbal commands. In the prone position, following sterile prep and drape of the lumbar region, the L5/S1 translaminar space was identified fluoroscopically. The skin was anesthetized via a 25-gauge, 1.5-inch needle with 1% lidocaine solution. At this point, a 22-gauge short bevel spinal needle was atraumatically introduced and advanced under fluoroscopic guidance into the region of the L5/S1 translaminar space. Depth was confirmed on lateral view. Radiological data, including multiple fluoroscopic views of the lumbar spine, reveal a spinal needle at the L5/S1 translaminar space. Lateral views then show placement of the needle in the epidural space. Subsequent views show contrast material flowing superiorly and inferiorly in the epidural space. No vascular or intrathecal uptake is observed. At this point, using loss of resistance technique with saline and air, the epidural space was entered. This was confirmed following negative aspiration with injection of approximately 1.5cc of Isovue 200, showing excellent epidural flow without vascular or intrathecal uptake. At this point, 1 cc of 1% lidocaine solution combined with 3cc or 20mg of dexamethasone and 6mg of betamethasone was injected without incident. The patent tolerated the procedure without signs of symptoms of complications prior to transfer to the recovery area for further monitoring. The patient was then transferred to the recovery area where they were observed for an appropriate period of time after the injection. The patient reported a VAS score of 6 prior to the procedure and a post-procedure VAS of 0. POST OP INSTRUCTIONS The patient was provided a Pain Log to continue to record their response to the target-specific procedure prior to follow-up visit with their referring physician. Additionally, specific post-injection care instructions and a contact number to our office were provided if concerns arise regarding possible complications associated with the procedure are suspected.
== END 2022-03-15 10:00 | disposition home or self-care (01) ==
LOC: RAD 08:35
PROVIDERS: Referring Provider Physical Medicine & Rehabilitation; Visit Provider Physical Medicine & Rehabilitation
DX: M51.17 Intervertebral disc disorders with radiculopathy, lumbosacral region (principal); M48.07 Spinal stenosis, lumbosacral region
CPT/HCPCS: 62323; 99152; J0702; J1100; J2250

== ENCOUNTER → 2022-06-21 11:08 | Outpatient (CLI) | payer MEDICARE, OTHER, SELFPAY ==
[2022-06-21 13:41] LABS: COVID19 -Nasal RAPID Negative (Negative)
== END ==
PROVIDERS: Visit Provider Physical Medicine & Rehabilitation
DX: Z20.822 Contact with and (suspected) exposure to COVID-19 (principal)
CPT/HCPCS: 87635; C9803

== ENCOUNTER 2022-06-23 09:36 | Outpatient (CLI) | payer MEDICARE, OTHER, SELFPAY ==
[2022-06-23] VITALS (9 sets, daily range): BP systolic 110–131; BP diastolic 56–85; PULSE 60–69; RESP 17–22; TEMP 36.3; O2SAT 95–99
--- NOTE | 2022-06-23 09:38 | DI.RAD.S_ITS ---
PROCEDURE: PAIN L INTERLAMINAR/CAUDAL INJ INDICATIONS: SPONDYLOSIS COMPARISON: [facility], XA, PAIN L INTERLAMINAR/CAUDAL INJ, 03/15/2022, 9:28. FINDINGS: Fluoroscopic spot filming was performed to verify placement of spinal needles at the right L5-S1 level(s), as labeled on the films. Appropriate location(s) of the needle tip(s) was confirmed by injection of iodinated contrast. IMPRESSION: Fluoroscopic support for lumbosacral interlaminar injection. Please see separate procedure note for further details. Dictated by: David Olea M.D. on 06/23/2022 at 11:00 Approved by: David Olea M.D. on 06/23/2022 at 11:00
[2022-06-23] MEDS: MIDAZOLAM 2 MG/2 ML VIAL IV (10:35)
[2022-06-23] MEDS: IOPAMIDOL 15 ML VIAL 3 ML INJ (10:39)
[2022-06-23] MEDS: BUPIVACAINE 0.25% (PF) VIAL 2 ML INJ (10:40)
[2022-06-23] MEDS: BETAMETHASONE 30 MG/5 ML MDV 6 MG INJ (10:40)
[2022-06-23] MEDS: DEXAMETHASONE 10 MG/ML VIAL 20 MG INJ (10:40)
--- NOTE | 2022-06-23 10:52 | PM.PROC.IR.1 ---
Date/Time/Diagnoses Date of procedure: 06/23/22 Time of procedure: 10:52 Pre-procedure diagnosis: 1. HNP WITH RADICULAR FEATURES, 2. MULTILEVEL CENTRAL STENOSIS, Post-procedure diagnosis: same Procedure Notes Procedure: 1. FLUOROSCOPICALLY GUIDED CONTRAST CONTROLLED INTERLAMINAR EPIDURAL STEROID INJECTION - L5/S1 Indications: Po is referred for treatment of Bilateral Foraminal Stenosis L>R LE symptoms. Physician: Ayan Mtz Total Fluoroscopy time (seconds): 3 Total sedation minutes: 8 Complications: none Procedure in detail & Post-procedure care: FINDINGS Multilevel Central Spinal Stenosis with Nerve Root Compression DESCRIPTION OF PROCEDURE Fluoroscopically guided, contrast-controlled L5/S1 translaminar epidural steroid injection. Following review of allergy and review of potential side effects and complications, including, but not necessarily limited to, infection, allergic reaction, local tissue breakdown, temporary as well as permanent nerve injury, paralysis, stroke and possible , the patient indicated that the patient understood and agreed to proceed. An informed consent document was signed by the patient, witnessed by a nurse, and placed in the patient's chart. Additionally, other treatment options including modalities, medications, and physical therapy were reviewed with the patient. After review of previous anaesthesic history and IV conscious sedation the patient was deemed safe to proceed with today?s procedure with IV conscious sedation as ASA class II designation. Safety time-out was performed to confirm patient ID, procedure to be performed and site of procedure. IV sedation was accomplished with a combination of 2mg of Versed administered by the RN after DO order, titrated to patient comfort during the course of the procedure while the patient remained responsive to all verbal commands. In the prone position, following sterile prep and drape of the lumbar region, the L5/S1 translaminar space was identified fluoroscopically. The skin was anesthetized via a 25-gauge, 1.5-inch needle with 1% lidocaine solution. At this point, a 22-gauge short bevel spinal needle was atraumatically introduced and advanced under fluoroscopic guidance into the region of the L5/S1 translaminar space. Depth was confirmed on lateral view. Radiological data, including multiple fluoroscopic views of the lumbar spine, reveal a spinal needle at the L5/S1 translaminar space. Lateral views then show placement of the needle in the epidural space. Subsequent views show contrast material flowing superiorly and inferiorly in the epidural space. No vascular or intrathecal uptake is observed. At this point, using loss of resistance technique with saline and air, the epidural space was entered. This was confirmed following negative aspiration with injection of approximately 1.5cc of Isovue 200, showing excellent epidural flow without vascular or intrathecal uptake. At this point, 1 cc of 1% lidocaine solution combined with 3cc or 20mg of dexamethasone and 6mg of betamethasone was injected without incident. The patent tolerated the procedure without signs of symptoms of complications prior to transfer to the recovery area for further monitoring. The patient was then transferred to the recovery area where they were observed for an appropriate period of time after the injection. The patient reported a VAS score of 6 prior to the procedure and a post-procedure VAS of 0. POST OP INSTRUCTIONS The patient was provided a Pain Log to continue to record their response to the target-specific procedure prior to follow-up visit with their referring physician. Additionally, specific post-injection care instructions and a contact number to our office were provided if concerns arise regarding possible complications associated with the procedure are suspected.
== END 2022-06-23 11:08 | disposition home or self-care (01) ==
LOC: RAD 09:37
PROVIDERS: Referring Provider Physical Medicine & Rehabilitation; Visit Provider Physical Medicine & Rehabilitation
DX: M51.17 Intervertebral disc disorders with radiculopathy, lumbosacral region (principal); M48.07 Spinal stenosis, lumbosacral region
CPT/HCPCS: 62323; J0702; J1100; J2250; J3490

== ENCOUNTER → 2023-01-03 11:41 | Outpatient (CLI) | payer MEDICARE, OTHER, SELFPAY ==
--- NOTE | 2023-01-03 11:42 | DI.RAD.S_ITS ---
PROCEDURE: XR SHOULDER LT MIN 2V INDICATIONS: Left shoulder impingement TECHNIQUE: 2 views of the shoulder were acquired. COMPARISON: None. FINDINGS: Bones: No fractures or dislocations. No suspicious bony lesions. Visualized ribs appear intact. Mild left acromioclavicular joint osteoarthritis. Soft tissues: No suspicious soft tissue calcifications. IMPRESSION: No fracture. No acute osseous lesion. If symptoms and/or clinical suspicion for pathology persists, further assessment with repeat radiographs (7-10 days) or advanced imaging (e.g. CT, MRI or bone scan) should be considered. Dictated by: Carolynn Ugarte MD, PhD on 01/03/2023 at 13:11 Approved by: Carolynn Ugarte MD, PhD on 01/03/2023 at 13:12
== END ==
PROVIDERS: Referring Provider Physical Medicine & Rehabilitation; Visit Provider Physical Medicine & Rehabilitation
DX: M75.102 Unspecified rotator cuff tear or rupture of left shoulder, not specified as traumatic (principal); M12.812 Other specific arthropathies, not elsewhere classified, left shoulder; M75.101 Unspecified rotator cuff tear or rupture of right shoulder, not specified as traumatic; M12.811 Other specific arthropathies, not elsewhere classified, right shoulder
CPT/HCPCS: 73030

== ENCOUNTER 2023-01-17 08:10 | Outpatient (CLI) | payer MEDICARE, OTHER, SELFPAY ==
[2023-01-17] VITALS (8 sets, daily range): BP systolic 112–137; BP diastolic 68–87; PULSE 68–78; RESP 14–23; TEMP 36.3; O2SAT 96–98
--- NOTE | 2023-01-17 08:11 | DI.RAD.S_ITS ---
PROCEDURE: PAIN SI JOINT INJECTION INDICATIONS: SACROILIAC DISORDER COMPARISON: None. FINDINGS: Fluoroscopic spot filming was performed to verify placement of spinal needles at the left SI joint, as labeled on the films. IMPRESSION: Imaging guidance utilized for left SI joint injection performed by referring interventional pain physician. Dictated by: Mo Shelton M.D. on 01/17/2023 at 9:56 Approved by: Mo Shelton M.D. on 01/17/2023 at 9:57
[2023-01-17] MEDS: MIDAZOLAM 2 MG/2 ML VIAL IV (09:15)
[2023-01-17] MEDS: BETAMETHASONE 30 MG/5 ML MDV 12 MG INJ (09:22)
[2023-01-17] MEDS: BUPIVACAINE 0.5% (PF) 30 ML VIAL INJ (09:22)
[2023-01-17] MEDS: IOPAMIDOL 15 ML VIAL 3 ML INJ (09:22)
--- NOTE | 2023-01-17 09:35 | PM.PROC.IR.1 ---
Date/Time/Diagnoses Date of procedure: 01/17/23 Time of procedure: 09:35 Pre-procedure diagnosis: Sacroiliac Joint Pain/DJD Post-procedure diagnosis: same Procedure Notes Procedure: Fluoroscopically guided contrast controlled left sacroiliac joint injection Indications: Po is referred for treatment of left sacroiliac joint DJD Physician: Ayan Mtz Total Fluoroscopy time (seconds): 8 Total sedation minutes: 15 Complications: none Procedure in detail & Post-procedure care: DESCRIPTION OF PROCEDURE Fluoroscopic guided, contrast controlled left sacroiliac joint injection Following review of allergies and review of potential side effects and complications, including, but not necessarily limited to, infection, allergic reaction, local tissue breakdown, temporary as well as permanent nerve injury, paralysis, stroke and possible , the patient indicated that they understood and agreed to proceed. An informed consent was signed by the patient, witnessed by a nurse, and placed in the patient's chart. Additionally, other treatment options including modalities, medications, and physical therapy were reviewed with the patient. After review of previous anaesthesic history and IV conscious sedation the patient was deemed safe to proceed with today?s procedure with IV conscious sedation as ASA class II designation. Safety time-out was performed to confirm patient ID, procedure to be performed and site of procedure. IV sedation was accomplished with a combination of 2mg of Versed administered by the RN after DO order, titrated to patient comfort during the course of the procedure while the patient remained responsive to all verbal commands. In the prone position following sterile prep and drape of the pelvic region, the hyper lucency on in the inferior aspect of the left sacroiliac joint was identified fluoroscopically the skin was anesthetized be a 25 gauge 1 eventual with approximately 2cc of 1% lidocaine solution. At this point, a 22 gauge 3inch spinal needle was atraumatically introduced and advanced under fluoroscopic guidance into the inferior aspect of the left sacroiliac joint. Following negative aspiration, approximately 0.3cc of Isovue-300 was injected confirming intra-articular placement without vascular uptake. Radiographic data, including multiple fluoroscopic views of the pelvis, reveals a spinal needle in the left sacroiliac joint hyper lucent zone. Subsequent view show flow contrast tear superiorly and inferiorly within the joint capsule without vascular intrathecal uptake. At this point a total of 1cc or 0.5% Marcaine was combined with 1cc of 6mg of betamethasone was injected without incident. The patient tolerated the procedure well without signs or symptoms of complications prior to transfer to the recovery area for further monitoring. The patient was then transferred to the recovery area with a bur observed for an appropriate time after the injection. The patient reverted a vas score of 7 prior to the procedure and postprocedure vas of 1. POSTOP INSTRUCTIONS The patient was provided with a pain like to continue to record the patient's response to the target specific procedure prior to the patient's follow-up visit with the referring physician. Additionally, specific post injection care instructions and a contact number to our office were provided if concerns arise regarding the possible complications associated with procedure are suspected.
== END 2023-01-17 09:48 | disposition home or self-care (01) ==
LOC: RAD 08:11
PROVIDERS: Referring Provider Physical Medicine & Rehabilitation; Visit Provider Physical Medicine & Rehabilitation
DX: M53.3 Sacrococcygeal disorders, not elsewhere classified (principal); M46.1 Sacroiliitis, not elsewhere classified
CPT/HCPCS: 27096; 99152; J0702; J2250

== ENCOUNTER → 2024-03-11 10:29 | Outpatient (CLI) | payer MEDICARE, OTHER, SELFPAY ==
--- NOTE | 2024-03-11 10:32 | DI.RAD.S_ITS ---
PROCEDURE: XR SHOULDER LT MIN 2V INDICATIONS: left shoulder pain, likely rotator cuff injury TECHNIQUE: 3 views of the shoulder were acquired. COMPARISON: [facility], [place], XR SHOULDER LT MIN 2V, 01/03/2023, 11:42. FINDINGS: Bones: No fractures or dislocations. Mild glenohumeral joint degenerative arthritis. No suspicious bony lesions. Visualized ribs appear intact. Soft tissues: No suspicious soft tissue calcifications. IMPRESSION: Mild degenerative change. No evidence acute bony abnormality. Dictated by: Mo Shelton M.D. on 03/11/2024 at 11:22 Approved by: Mo Shelton M.D. on 03/11/2024 at 11:23
== END ==
LOC: RAD 10:30
PROVIDERS: Referring Provider Physician Assistant Medical; Visit Provider Physician Assistant Medical
DX: S46.912A Strain of unspecified muscle, fascia and tendon at shoulder and upper arm level, left arm, initial encounter (principal); M19.012 Primary osteoarthritis, left shoulder; X58.XXXA Exposure to other specified factors, initial encounter
CPT/HCPCS: 73030

== ENCOUNTER → 2024-04-26 09:25 | Outpatient (CLI) | payer MEDICARE, OTHER, SELFPAY ==
[2024-04-26 10:13] LABS: Alanine Aminotransferase 20 IU/L (<50); Albumin 4.3 g/dL (3.5-5.0); Albumin Globulin Ratio 1.1 (1.0-2.8); Alkaline Phosphatase 88 U/L (38-126); Aspartate Aminotransferase 27 IU/L (17-59); BUN Creatinine Ratio 12.6 (6-22); Bilirubin Total 0.5 mg/dL (0.2-1.3); Blood Urea Nitrogen 15 mg/dL (9-20); Calcium 9.6 mg/dL (8.4-10.2); Carbon Dioxide 28 mmol/L (22-32); Chloride 106 mmol/L (98-107); Cholesterol 178 mg/dL (140-199); Estimated Glomerular Filt Rate > 60 mL/min (>60); Globulin 3.8 g/dL (1.7-4.1); Glucose 95 mg/dL (80-110); HDL Cholesterol 44 mg/dL (40-60); HEMOLYSIS < 15 (0-50); LDL Cholesterol Calculated 104 mg/dL (<100); Sodium 139 mmol/L (137-145); Total Protein 8.1 g/dL (6.3-8.2); Triglycerides 152 mg/dL (35-150)
[2024-04-26 10:37] LABS: Prostate Specific Antigen Scrn 0.482 ng/mL (0.1-4.0)
[2024-04-26 11:58] LABS: Hep C Virus Ab w/Reflex Quant NEGATIVE s/c (NEGATIVE)
== END ==
LOC: LAB 09:27
PROVIDERS: PCP Family Medicine; Referring Provider Family Medicine; Visit Provider Family Medicine
DX: Z00.00 Encounter for general adult medical examination without abnormal findings (principal); Z12.5 Encounter for screening for malignant neoplasm of prostate; Z11.59 Encounter for screening for other viral diseases; F17.200 Nicotine dependence, unspecified, uncomplicated
CPT/HCPCS: 80053; 80061; 86803; G0103

== ENCOUNTER → 2024-05-01 15:38 | Outpatient (CLI) | payer MEDICARE, OTHER, SELFPAY ==
[2024-05-03 14:13] LABS: Fecal Immunochemical Test Negative (Negative)
== END ==
PROVIDERS: PCP Family Medicine; Referring Provider Family Medicine; Visit Provider Family Medicine
DX: Z00.00 Encounter for general adult medical examination without abnormal findings (principal); Z11.59 Encounter for screening for other viral diseases; F17.200 Nicotine dependence, unspecified, uncomplicated
CPT/HCPCS: 82274

== ENCOUNTER → 2024-05-07 11:43 | Outpatient (CLI) | payer MEDICARE, OTHER, SELFPAY ==
--- NOTE | 2024-05-07 11:44 | DI.US.S_ITS ---
PROCEDURE: US ABD AORTA ANEURYSM SCREEN INDICATIONS: Encounter for screening for cardiovascular disorde TECHNIQUE: Real time scanning was performed of the aorta and iliac arteries, with image documentation. COMPARISON: None. FINDINGS: Aorta: Proximal aortic diameter measures 2.4 cm. Mid-aorta measures 1.5 cm. Distal aortic diameter is 1.7 cm. Iliac arteries: Right common iliac artery measures 1.0 cm. Left common iliac artery measures 0.9 cm. IMPRESSION: No abdominal aortic aneurysm. Dictated by: Ramírez Cruz M.D. on 05/07/2024 at 13:20 Approved by: Ramírez Cruz M.D. on 05/07/2024 at 13:21
== END ==
PROVIDERS: PCP Family Medicine; Referring Provider Family Medicine; Visit Provider Family Medicine
DX: Z13.6 Encounter for screening for cardiovascular disorders (principal)
CPT/HCPCS: 76706

== ENCOUNTER 2024-09-03 07:46 | Outpatient (CLI) | payer MEDICARE, OTHER, SELFPAY ==
[2024-09-03] VITALS (9 sets, daily range): BP systolic 107–138; BP diastolic 58–74; PULSE 68–80; RESP 16–20; TEMP 36.2; O2SAT 94–99
[2024-09-03] MEDS: MIDAZOLAM 2 MG/2 ML VIAL IV (08:41)
--- NOTE | 2024-09-03 08:45 | DI.RAD.S_ITS ---
PROCEDURE: PAIN L/S TRANSFORAMINAL INJECT INDICATIONS: Right L4-5 and L5-S1 transforaminal AUGUSTINE COMPARISON: [facility], XA, PAIN L/S TRANSFORAMINAL INJECT, 12/14/2021, 9:17. FINDINGS: Fluoroscopic spot filming was performed to verify placement of spinal needles at the L4-5 and L5-S1 level(s), as labeled on the films. Appropriate location(s) of the needle tip(s) was confirmed by injection of iodinated contrast. IMPRESSION: Fluoro guidance was provided intraoperatively for right L4-5 and L5-S1 transforaminal AUGUSTINE performed by ordering physician. Dictated by: Fabrizio Alvarez M.D. on 09/03/2024 at 17:09 Approved by: Fabrizio Alvarez M.D. on 09/03/2024 at 17:09
[2024-09-03] MEDS: BETAMETHASONE 30 MG/5 ML MDV 12 MG INJ (08:47)
[2024-09-03] MEDS: iopamidoL 15 ML VIAL 3 ML INJ (08:47)
[2024-09-03] MEDS: DEXAMETHASONE 10 MG/ML VIAL 20 MG INJ (08:47)
[2024-09-03] MEDS: BUPIVACAINE 0.25% (PF) VIAL 2 ML INJ (08:47)
--- NOTE | 2024-09-03 09:14 | P.PCN_ITS ---
Date/Time/Diagnoses Date of procedure: 09/03/24 Time of procedure: 09:14 Pre-procedure diagnosis: 1. FORAMINAL STENOSIS WITH LE SYMPTOMS Post-procedure diagnosis: same Procedure Notes Procedure: 1. FLUOROSCOPICALLY GUIDED CONTRAST CONTROLLED TRANSFORAMINAL EPIDURAL STEROID INJECTION - RIGHT L4/5 TFESI Indications: Po is referred by Dr. Amaya for treatment of Foraminal Stenosis with Right LE Symptoms Physician: Ayan Mtz Total Fluoroscopy time (seconds): 13 Total sedation minutes: 17 Complications: none Procedure in detail & Post-procedure care: FINDINGS Foraminal Nerve Root Compression secondary to disc disease and facet hypertrophy DESCRIPTION OF PROCEDURE Following review of allergy and review of potential side effects and complications, including, but not necessarily limited to, infection, allergic reaction, local tissue breakdown, stroke, temporary or permanent nerve injury, paralysis, and possible , the patient indicated that the patient understood and agreed to proceed. An informed consent document was signed by the patient, witnessed by a nurse, and placed in the patient's chart. Additionally, other treatment options including medications, modalities, and physical therapy were reviewed with the patient. After review of previous anaesthesic history and IV conscious sedation the patient was deemed safe to proceed with today?s procedure with IV conscious sedation as ASA class II designation. Safety time-out was performed to confirm patient ID, procedure to be performed and site of procedure. IV sedation was accomplished with a combination of 2mg of Versed was administered by the RN after DO order, titrated to patient comfort during the course of the procedure while the patient remained responsive to all verbal commands In the prone position following sterile prep and drape of the lumbar region, the right L4/5 posterior neuroforamen was identified fluoroscopically. The skin was anesthetized via a 25-gauge 1.5-inch needle with 1% lidocaine solution. At this point, a 25-gauge 3.5-inch spinal needle was atraumatically introduced and advanced under fluoroscopic guidance through the posterior right L4/5 neuroforamen to approximately the anterior aspect of the canal. Depth was confirmed on lateral view. Following negative aspiration, injection of approximately 1.5cc of Isovue 200 under live fluoroscopy in the AP view c onfirmed excellent flow along the nerve root, into the epidural space without vascular or intrathecal uptake observed Radiological data, including multiple fluoroscopic views of the lumbosacral spi ne, reveal a spinal needle at the right L4/5 posterior neuroforamen. Subsequent views show flow of contrast material flowing superiorly and inferiorly along the nerve root confirming epidural flow. Subsequently, a test dose of 1.5 cc of 1% lidocaine solution was administered and patient was observed for two minutes for signs or symptoms of complications, including abdominal pain, shortness of breath, bilateral upper or lower extremity weakness, nausea and vomiting, prior to steroid injection. At this point, a total of 2cc or 10mg of dexamethasone and 6mg of betamethasone was injected without incident. The procedure tolerated the procedure well without signs or symptoms of complications prior to transfer to the recovery area continued monitoring without incident. The patient was then transferred to the recovery area where they were observed for an appropriate time after the injection. The patient reported a VAS score of 7 prior to the procedure and a post- procedure VAS of 0. POST OP INSTRUCTIONS The patient was provided a Pain Log to continue to record their response to the target-specific procedure prior to follow-up visit with their referring physician. Additionally, specific post-injection care instructions and a contact number to our office were provided if concerns arise regarding possible complications associated with the procedure are suspected.
--- NOTE | 2024-09-03 09:15 | P.PCN_ITS ---
Date/Time/Diagnoses Date of procedure: 09/03/24 Time of procedure: 09:15 Pre-procedure diagnosis: FORAMINAL STENOSIS WITH LE SYMPTOMS Post-procedure diagnosis: same Procedure Notes Procedure: 1. FLUOROSCOPICALLY GUIDED CONTRAST CONTROLLED TRANSFORAMINAL EPIDURAL STEROID INJECTION - RIGHT L5/S1 TFESI Indications: Po is referred by Dr. Amaya for treatment of Foraminal Stenosis with Right LE Symptoms Physician: Ayan Mtz Total Fluoroscopy time (seconds): 13 Total sedation minutes: 17 Complications: none Procedure in detail & Post-procedure care: FINDINGS Foraminal Nerve Root Compression secondary to disc disease and facet hypertrophy DESCRIPTION OF PROCEDURE Following review of allergy and review of potential side effects and complications, including, but not necessarily limited to, infection, allergic r eaction, local tissue breakdown, stroke, temporary or permanent nerve injury, paralysis, and possible , the patient indicated that the patient understood and agreed to proceed. An informed consent document was signed by the patient, witnessed by a nurse, and placed in the patient's chart. Additionally, other treatment options including medications, modalities, and physical therapy were reviewed with the patient. After review of previous anaesthesic history and IV conscious sedation the patient was deemed safe to proceed with today?s procedure with IV conscious sedation as ASA class II designation. Safety time-out was performed to confirm patient ID, procedure to be performed and site of procedure. IV sedation was accomplished with a combination of 2mg of Versed was administered by the RN after DO order, titrated to patient comfort during the course of the procedure while the patient remained responsive to all verbal commands In the prone position following sterile prep and drape of the lumbar region, the right L5/S1 posterior neuroforamen was identified fluoroscopically. The skin was anesthetized via a 25-gauge 1.5-inch needle with 1% lidocaine solution. At this point, a 25-gauge 3.5-inch spinal needle was atraumatically introduced and advanced under fluoroscopic guidance through the posterior right L5/S1 neuroforamen to approximately the anterior aspect of the canal. Depth was confirmed on lateral view. Following negative aspiration, injection of approximately 1.5cc of Isovue 200 under live fluoroscopy in the AP view confirmed excellent flow along the nerve root, into the epidural space without vascular or intrathecal uptake observed Radiological data, including multiple fluoroscopic views of the lumbosacral spine, reveal a spinal needle at the right L5/S1 posterior neuroforamen. Subsequent views show flow of contrast material flowing superiorly and inferiorly along the nerve root confirming epidural flow. Subsequently, a test dose of 1.5 cc of 1% lidocaine solution was administered and patient was observed for two minutes for signs or symptoms of complications, including abdominal pain, shortness of breath, bilateral upper or lower extre mity weakness, nausea and vomiting, prior to steroid injection. At this point, a total of 2cc or 10mg of dexamethasone and 6mg of betamethasone was injected without incident. The procedure tolerated the procedure well without signs or symptoms of complications prior to transfer to the recovery area continued monitoring without incident. The patient was then transferred to the recovery area where they were observed for an appropriate time after the injection. The patient reported a VAS score of 7 prior to the procedure and a post- procedure VAS of 0. POST OP INSTRUCTIONS The patient was provided a Pain Log to continue to record their response to the target-specific procedure prior to follow-up visit with their referring physician. Additionally, specific post-injection care instructions and a contact number to our office were provided if concerns arise regarding possible complications associated with the procedure are suspected.
== END 2024-09-03 09:20 | disposition home or self-care (01) ==
PROVIDERS: PCP Family Medicine; Referring Provider Physical Medicine & Rehabilitation; Visit Provider Physical Medicine & Rehabilitation
DX: M48.07 Spinal stenosis, lumbosacral region (principal); M51.17 Intervertebral disc disorders with radiculopathy, lumbosacral region; M47.27 Other spondylosis with radiculopathy, lumbosacral region; M48.061 Spinal stenosis, lumbar region without neurogenic claudication; M51.16 Intervertebral disc disorders with radiculopathy, lumbar region; M47.26 Other spondylosis with radiculopathy, lumbar region
CPT/HCPCS: 64483; 64484; 99152; J0702; J1100; J2250; J3490

== ENCOUNTER → 2024-11-14 11:02 | Outpatient (CLI) | payer MEDICARE, OTHER, SELFPAY ==
--- NOTE | 2024-11-14 11:04 | DI.MRI.S_ITS ---
PROCEDURE: MR SHOULDER LT WO CON INDICATIONS: pain in shoulder TECHNIQUE: Noncontrast oblique coronal T2 fast spin echo with fat saturation, oblique sagittal T1 spin echo and T2 fast spin echo with fat saturation, axial T1 spin echo and T2 fast spin echo with fat saturation through the shoulder. COMPARISON: [facility], CR, XR SHOULDER 2+ VIEWS BILATERAL, 10/01/2024, 7:41. [facility], MR, SHOULDER WITHOUT CONTRAST, 01/19/2015, 14:58. FINDINGS: Image quality: Excellent. Rotator cuff: Moderate tendinosis of the supraspinatus and infraspinatus. There is focal, high-grade, bursal sided and articular sided tear at the critical zone of the mid supraspinatus (8:9), extending to a low-grade interstitial tear in the critical zone of the posterior supraspinatus. There is low grade, articular sided tear at the anterior footprint of the infraspinatus (08:14). The teres minor is unremarkable. The subscapularis is unremarkable. No muscle edema or fatty atrophy. Bones and bursae: Severe degenerative changes of the acromioclavicular joint, progressed from prior exam. Type 2 acromion. No os acromiale. Mild subacromial/subdeltoid bursitis. Mild subchondral cystic changes at the lesser tuberosity, reactive. No acute fracture. Mild chondral thinning of the superior glenoid. Capsule and soft tissues: Superior labral tear, extending anteriorly to the anterior labrum. No paralabral cyst. Mild tenosynovitis of the extra-articular biceps tendon. Small ganglion cyst about the lesser tuberosity. Mild tendinosis of the intra-articular biceps tendon. Trace glenohumeral effusion. No intra-articular body. IMPRESSION: 1. Severe degenerative changes of the acromioclavicular joint, progressed from prior exam. 2. Focal high-grade tear of the mid supraspinatus, extending to a low-grade interstitial tear at the posterior supraspinatus, new from prior exam. 3. Low-grade tear of the infraspinatus, new from prior exam as well. 4. Labral tear. 5. Mild tenosynovitis of the extra-articular biceps tendon. Mild tendinosis of the intra-articular biceps tendon. Dictated by: Echo Da Silva M.D. on 11/14/2024 at 14:07 Approved by: Echo Da Silva M.D. on 11/14/2024 at 14:20
== END ==
PROVIDERS: PCP Family Medicine; Referring Provider Orthopaedic Surgery; Visit Provider Orthopaedic Surgery
DX: M75.112 Incomplete rotator cuff tear or rupture of left shoulder, not specified as traumatic (principal); S43.402A Unspecified sprain of left shoulder joint, initial encounter; M65.912 Unspecified synovitis and tenosynovitis, left shoulder; M25.512 Pain in left shoulder
CPT/HCPCS: 73221

== ENCOUNTER → 2025-05-12 06:42 | Outpatient (CLI) | payer MEDICARE, OTHER, SELFPAY ==
--- NOTE | 2025-05-12 06:45 | DI.CT.S_ITS ---
PROCEDURE: CT LUNG LOW DOSE SCREENING INDICATIONS: screening TECHNIQUE: Noncontrast 2.0-2.5 mm thick sections acquired from the pulmonary apices to the posterior costophrenic angles. 7 mm thick axial MIP, and 5 mm coronal and sagittal reformats were then acquired. For radiation dose reduction, the following was used: automated exposure control, adjustment of mA and/or kV according to patient size. COMPARISON: None. FINDINGS: Image quality: Diagnostic. Lower Neck: No enlarged lymph nodes. Thyroid: No thyroid nodules which require sonographic follow up, per consensus guidelines. Axillae: No enlarged lymph nodes. Chest Wall: Unremarkable. Bones: Unremarkable. Lungs and Pleura: No pneumothorax or pleural effusions. No consolidation or suspicious nodules. Moderate centrilobular emphysema. Heart: Heart size is normal. No pericardial effusion. Mild coronary artery calcifications. Thoracic Vessels: The aorta and pulmonary arteries demonstrate normal size. Mediastinum and Lilly: No enlarged lymph nodes. Esophagus: No wall thickening. No hiatal hernia. Upper Abdomen: Visualized upper abdomen solid organs and bowel loops appear normal. IMPRESSION: No suspicious pulmonary nodules. Moderate emphysema. LUNG-RADS 1; continued annual screening, if eligible. Clinically Significant Non-pulmonary Findings: None. Approved by: Irais Davila M.D.,Ph.D. on 05/12/2025 at 10:21
[2025-05-12 07:30] LABS: Hematocrit 50.7 % (41-53); Hemoglobin 16.8 g/dL (13.5-17.5); Mean Corpuscular HGB Conc 33.2 % (30-36); Mean Corpuscular Hemoglobin 29.5 PG (26-34); Mean Corpuscular Volume 89.0 fL (80-100); Platelet Count 179 X10^3/uL (150-400)
[2025-05-12 07:54] LABS: Alanine Aminotransferase 21 IU/L (<50); Albumin 4.7 g/dL (3.5-5.0); Albumin Globulin Ratio 1.3 (1.0-2.8); Alkaline Phosphatase 73 U/L (38-126); Blood Urea Nitrogen 21 mg/dL (9-20); Calcium 9.9 mg/dL (8.4-10.2); Carbon Dioxide 25 mmol/L (22-32); Chloride 104 mmol/L (98-107); Cholesterol 144 mg/dL (140-199); Estimated Glomerular Filt Rate > 60 mL/min (>60); Globulin 3.6 g/dL (1.7-4.1); Glucose 104 mg/dL (70-99); HDL Cholesterol 50 mg/dL (40-60); HEMOLYSIS 23 (0-50); Potassium 4.6 mmol/L (3.4-5.1); Sodium 137 mmol/L (137-145); Total Protein 8.3 g/dL (6.3-8.2); Triglycerides 111 mg/dL (35-150)
[2025-05-12 08:44] LABS: Vitamin B12 460 pg/mL (239-931)
[2025-05-12 08:51] LABS: Hemoglobin A1C% w Est Avg Glu 5.2 % (4.0-6.0)
== END ==
PROVIDERS: PCP Family Medicine; Referring Provider Family Medicine; Visit Provider Family Medicine
DX: Z00.00 Encounter for general adult medical examination without abnormal findings (principal); Z12.2 Encounter for screening for malignant neoplasm of respiratory organs; F17.210 Nicotine dependence, cigarettes, uncomplicated; J43.2 Centrilobular emphysema; E78.2 Mixed hyperlipidemia; G62.9 Polyneuropathy, unspecified; I25.10 Atherosclerotic heart disease of native coronary artery without angina pectoris
CPT/HCPCS: 36415; 71271; 80053; 80061; 82607; 83036; 85027

== ENCOUNTER → 2025-09-09 13:18 | Outpatient (CLI) | payer MEDICARE, OTHER, SELFPAY | PROVIDERS: PCP Family Medicine; Referring Provider Family Medicine; Visit Provider Family Medicine | DX: Z00.00 Encounter for general adult medical examination without abnormal findings (principal); E78.2 Mixed hyperlipidemia; F17.200 Nicotine dependence, unspecified, uncomplicated; G62.9 Polyneuropathy, unspecified | CPT/HCPCS: 82274 ==